=== PATIENT | female | born 1940 | race African-American/Black ===

== ENCOUNTER 2018-09-03 15:03 | Inpatient (IN) ==
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
[2018-09-03 16:27] LABS: Activated Partial Thrombo Time 25.7 sec (23.4-31.7); INR 1.1 Ratio; Prothrombin Time 11.2 sec (9.8-11.6)
[2018-09-03 16:41] LABS: Alkaline Phosphatase 114 U/L (45-117); Total Protein 7.2 g/dL (6.4-8.2)
[2018-09-03 16:42] LABS: Baso # (Auto) 0.1 th/mm3 (0.0-0.2); Baso % (Auto) 0.2 % (0.0-2.0); Eos % (Auto) 0.1 % (0.0-4.0); Hemoglobin 12.5 gm/dL (11.6-15.3); Lymph # (Auto) 1.3 th/mm3 (1.0-4.8); Lymph % (Auto) 3.6 % (9.0-44.0); Mean Corpuscular HGB Conc 33.9 % (32.0-36.0); Mean Corpuscular Volume 100.4 fL (80.0-100.0); Mean Platelet Volume 7.1 fL (7.0-11.0); Mono # (Auto) 2.2 th/mm3 (0.0-0.9); Mono % (Auto) 6.1 % (0.0-8.0); Neut # (Auto) 31.9 th/mm3 (1.8-7.7); Platelet Count 339 th/mm3 (150-450); Red Blood Count 3.68 mil/mm3 (4.00-5.30); Red Cell Distribution Width 13.1 % (11.6-17.2); White Blood Count 35.4 th/mm3 (4.0-11.0)
[2018-09-03 16:43] LABS: Alanine Aminotransferase 55 U/L (10-53); Anion Gap 11 meq/L (5-15); Aspartate Aminotransferase 60 U/L (15-37); Blood Urea Nitrogen 18 mg/dL (7-18); Calcium 8.7 mg/dL (8.5-10.1); Carbon Dioxide 23.3 meq/L (21.0-32.0); Chloride 106 meq/L (98-107); Glomerular Filtration Rate 62 mL/min (>89); Glucose,Random 222 mg/dL (74-106); Potassium 3.4 meq/L (3.5-5.1); Sodium 140 meq/L (136-145)
[2018-09-03 17:06] LABS: Lymphocytes 4 % (9-44); Monocytes 8 % (0-8)
[2018-09-03 17:07] LABS: Platelet Estimate Normal (Normal); Platelet Morphology Normal (Normal)
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
[2018-09-03] MEDS ORDERED: Morphine Sulfate Inj 2 MG/ML Vial IV.PUSH PRN (17:31)
[2018-09-03] MEDS ORDERED: Dextrose 50% in Water 50 ML Vial IV.PUSH PRN (17:35)
[2018-09-03] MEDS ORDERED: Methocarbamol 500 MG Tablet PO SCH (17:45)
--- NOTE | 2018-09-03 18:17 | XR ---
EXAM DATE: 09/03/2018 6:08 PM EST AGE/SEX: 78 years / Female INDICATIONS: Short of breath. CLINICAL DATA: This is the patient's initial encounter. Patient reports that signs and symptoms have been present for 1 day and indicates a pain score of Nonresponsive. MEDICAL/SURGICAL HISTORY: Non-responsive. Non-responsive. COMPARISON: No prior exams available for comparison. FINDINGS: A single AP view of the chest demonstrates the lungs to be symmetrically aerated without evidence of mass, infiltrate or effusion. The cardiomediastinal contours are unremarkable. Left posterior latera l sixth through ninth rib fractures. CONCLUSION: 1. Left posterior lateral sixth through ninth rib fractures without pneumothorax. Electronically signed by: Paulo Nunn MD 09/03/2018 6:16 PM EST
[2018-09-03] MEDS: Lidocaine 5% Patch T-DERMAL SCH (18:52)
[2018-09-03] MEDS: Pantoprazole Inj 40 MG Vial IV.PUSH SCH (21:01)
[2018-09-03] MEDS: Docusate Sodium 100 MG Capsule PO SCH (21:01)
[2018-09-03] MEDS: Sod Chloride 0.9% Inj 1,000 ML IV.CONT SCH (21:02)
[2018-09-03] MEDS: Insulin NovoLIN Regular Correctional Sugar Inj SQ SCH (21:02)
[2018-09-03] MEDS: Methocarbamol 500 MG Tablet PO SCH (21:02)
[2018-09-03 22:01] LABS: Hematocrit 36.6 % (35.0-46.0); Hemoglobin 12.6 gm/dL (11.6-15.3); Mean Corpuscular HGB Conc 34.6 % (32.0-36.0); Mean Corpuscular Hemoglobin 33.5 pg (27.0-34.0); Mean Corpuscular Volume 96.9 fL (80.0-100.0); Mean Platelet Volume 7.1 fL (7.0-11.0); Platelet Count 330 th/mm3 (150-450); Red Blood Count 3.77 mil/mm3 (4.00-5.30); Red Cell Distribution Width 13.2 % (11.6-17.2)
[2018-09-04] MEDS: Insulin NovoLIN Regular Correctional Sugar Inj SQ SCH ×4 (01:05→18:04)
[2018-09-04 03:48] LABS: Baso % (Auto) 0.1 % (0.0-2.0); Hemoglobin 11.2 gm/dL (11.6-15.3); Lymph % (Auto) 5.2 % (9.0-44.0); Mean Corpuscular HGB Conc 34.9 % (32.0-36.0); Mean Corpuscular Hemoglobin 33.7 pg (27.0-34.0); Mean Corpuscular Volume 96.4 fL (80.0-100.0); Mean Platelet Volume 7.2 fL (7.0-11.0); Mono % (Auto) 5.2 % (0.0-8.0); Neut # (Auto) 17.2 th/mm3 (1.8-7.7); Neut % (Auto) 89.5 % (16.0-70.0); Platelet Count 286 th/mm3 (150-450); Red Blood Count 3.32 mil/mm3 (4.00-5.30); Red Cell Distribution Width 13.2 % (11.6-17.2); White Blood Count 19.2 th/mm3 (4.0-11.0)
[2018-09-04 04:15] LABS: Alanine Aminotransferase 48 U/L (10-53); Albumin 3.8 g/dL (3.4-5.0); Alkaline Phosphatase 106 U/L (45-117); Anion Gap 9 meq/L (5-15); Aspartate Aminotransferase 38 U/L (15-37); Blood Urea Nitrogen 27 mg/dL (7-18); Calcium 8.6 mg/dL (8.5-10.1); Chloride 111 meq/L (98-107); Glomerular Filtration Rate 46 mL/min (>89); Glucose,Random 244 mg/dL (74-106); Potassium 4.3 meq/L (3.5-5.1); Sodium 143 meq/L (136-145); Total Protein 7.4 g/dL (6.4-8.2)
--- NOTE | 2018-09-04 04:54 | XR ---
EXAM DATE: 09/04/2018 4:44 AM EST AGE/SEX: 78 years / Female INDICATIONS: Shortness of breath. CLINICAL DATA: This is the patient's subsequent encounter. Patient reports that signs and symptoms h ave been present for 2 days and indicates a pain score of Nonresponsive. MEDICAL/SURGICAL HISTORY: Non-responsive. Non-responsive. COMPARISON: [facility] [place] 1V SINGLE AP, 09/03/2018. . FINDINGS: Mild basilar atelectasis. Left lower rib fractures are stable. No pneumothorax or significant effusio n. Heart size within normal limits. CONCLUSION: Multiple left-sided rib fractures. Mild basilar atelectasis. No significant pneumothorax. Electronically signed by: Jorge Luis Montano MD 09/04/2018 4:52 AM EST
[2018-09-04] MEDS: Methocarbamol 500 MG Tablet PO SCH ×3 (05:31→21:01)
[2018-09-04] MEDS: Sod Chloride 0.9% Inj 1,000 ML IV.CONT SCH ×2 (05:33→17:58)
[2018-09-04] MEDS: Lidocaine 5% Patch T-DERMAL SCH (09:45)
[2018-09-04] MEDS: amLODIPine 5 MG Tablet PO SCH (09:45)
[2018-09-04] MEDS: Levothyroxine 75 MCG Tablet PO SCH (09:45)
[2018-09-04] MEDS: Docusate Sodium 100 MG Capsule PO SCH ×2 (09:45→20:57)
--- NOTE | 2018-09-04 10:34 | ECG ---
Date Performed: 09/03/2018 Time Performed: 15:15:28 PTAGE: 78 years EKG: Sinus tachycardia RIGHT BUNDLE BRANCH BLOCK LEFT ANTERIOR FASCICULAR BLOCK Anterolateral ST depression, nonspecific VOLTAGE CRITERIA FOR LVH ABNORMAL ECG NO PREVIOUS TRACING DOCTOR: Valentín Douglas Interpretating Date/Time 09/04/2018 10:33:53
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
--- NOTE | 2018-09-04 17:27 | ECHRPT ---
Indication: Chest Pain CONCLUSIONS Normal left ventricular size. Wall thickness is normal. The left ventricular systolic function is normal with an estimated ejection fraction in the range of 55-60%. BP: 107 / 55 HR: 112 Rhythm: MEASUREMENTS (Male / Female) Normal Values Technical Quality:Technically difficult study 2D ECHO LV Diastolic Diameter PLAX 2.9 cm 4.2 - 5.9 / 3.9 - 5.3 cm LV Systolic Diameter PLAX 2.0 cm IVS Diastolic Thickness 1.0 cm 0.6 - 1.0 / 0.6 - 0.9 cm LVPW Diastolic Thickness 0.9 cm 0.6 - 1.0 / 0.6 - 0.9 cm LV Relative Wall Thickness 0.6 RV Internal Dim ED PLAX 2.3 cm LVOT Diameter 1.8 cm Aortic Root Diameter 2.3 cm LA Systolic Diameter LX 2.6 cm 3.0 - 4.0 / 2.7 - 3.8 cm DOPPLER AV Peak Velocity 140.0 cm/s AV Peak Gradient 7.8 mmHg Mitral E Point Velocity 69.6 cm/s Mitral A Point Velocity 113.0 cm/s Mitral E to A Ratio 0.6 LV E' Lateral Velocity 8.3 cm/s Mitral E to LV E' Lateral Ratio 8.4 LV E' Septal Velocity 7.9 cm/s Mitral E to LV E' Septal Ratio 8.8 TR Peak Velocity 281.0 cm/s TR Peak Gradient 31.6 mmHg Right Atrial Pressure 10.0 mmHg Pulmonary Artery Systolic Pressu 41.6 mmHg Right Ventricular Systolic Press 41.6 mmHg PV Peak Velocity 132.0 cm/s PV Peak Gradient 7.0 mmHg FINDINGS LEFT VENTRICLE Normal left ventricular size. Wall thickness is normal. The left ventricular systolic function is normal with an estimated ejection fraction in the range of 55-60%. RIGHT VENTRICLE Normal right ventricular size and systolic function. LEFT ATRIUM The left atrial size is normal. RIGHT ATRIUM The right atrial size is normal. ATRIAL SEPTUM Normal atrial septal thickness without atrial level shunting by limited color doppler interrogation. AORTA The aortic root and proximal ascending aorta are normal in size on limited imaging. MITRAL VALVE Structurally normal mitral valve. No mitral valve stenosis or regurgitation. AORTIC VALVE Trace aortic valve regurgitation. TRICUSPID VALVE There is trace tricuspid valve regurgitation. The estimated pulmonary arterial pressure is 42 mmHg. PULMONARY VALVE The pulmonary valve is not well visualized. VESSELS The inferior vena cava is normal in size. PERICARDIUM No pericardial effusion. Valentín Douglas MD, FACC (Electronically Signed) Final Date:04 September 2018 17:26
--- NOTE | 2018-09-04 17:35 | US ---
EXAM DATE: 09/04/2018 5:31 PM EST AGE/SEX: 78 years / Female INDICATIONS: History of stroke. CLINICAL DATA: This is the patient's initial encounter. Patient reports that signs and symptoms have been present for 1 day and indicates a pain score of 1/10. MEDICAL/SURGICAL HISTORY: Hypertension. Cerebral vascular accident. Left side rib fractures. Sp lenic laceration. Pelvic fracture. Thyroidectomy. Hysterectomy. COMPARISON: No prior exams available for comparison. VELOCITY PARAMETERS: ICA/CCA Ratio: Right 1.4 , Left 1.3 ICA: Right 108.5 cm/sec, Left 110.1 cm/sec CCA: Right 79.8 cm/sec, Left 87.8 cm/sec ECA: Right 82.4 cm/sec, Left 84.3 cm/sec Vertebral: Right 64.4 cm/sec antegrade, Left 72.3 cm/sec antegrade FINDINGS: Right Carotid: Mild arteriosclerotic plaque is visualized.The waveforms are within normal limits. Left Carotid: Mild arteriosclerotic plaque is visualized. The waveforms are within normal limits. Other: None. CONCLUSION: No evidence of flow-limiting carotid stenosis. Electronically signed by: Shane Reyna MD 09/04/2018 5:34 PM EST
[2018-09-04 18:00] LABS: Hemoglobin A1c 6.3 % (4.3-6.0)
[2018-09-04] MEDS: Pantoprazole Inj 40 MG Vial IV.PUSH SCH (20:57)
[2018-09-05] MEDS: Sod Chloride 0.9% Inj 1,000 ML IV.CONT SCH ×2 (00:27→12:03)
[2018-09-05] MEDS: Insulin NovoLIN Regular Correctional Sugar Inj SQ SCH ×4 (00:27→17:46)
[2018-09-05 04:13] LABS: Baso % (Auto) 0.2 % (0.0-2.0); Eos % (Auto) 0.1 % (0.0-4.0); Hematocrit 24.4 % (35.0-46.0); Hemoglobin 8.5 gm/dL (11.6-15.3); Lymph # (Auto) 0.8 th/mm3 (1.0-4.8); Mean Corpuscular HGB Conc 34.7 % (32.0-36.0); Mean Corpuscular Hemoglobin 33.7 pg (27.0-34.0); Mean Corpuscular Volume 97.3 fL (80.0-100.0); Mono # (Auto) 1.2 th/mm3 (0.0-0.9); Mono % (Auto) 7.3 % (0.0-8.0); Neut # (Auto) 14.4 th/mm3 (1.8-7.7); Neut % (Auto) 87.4 % (16.0-70.0); Platelet Count 202 th/mm3 (150-450); Red Blood Count 2.51 mil/mm3 (4.00-5.30); Red Cell Distribution Width 13.3 % (11.6-17.2); White Blood Count 16.4 th/mm3 (4.0-11.0)
[2018-09-05 04:44] LABS: Calcium 8.1 mg/dL (8.5-10.1); Carbon Dioxide 24.9 meq/L (21.0-32.0); Potassium 3.8 meq/L (3.5-5.1)
[2018-09-05] MEDS: Levothyroxine 75 MCG Tablet PO SCH (05:36)
[2018-09-05] MEDS: Methocarbamol 500 MG Tablet PO SCH ×3 (05:36→21:35)
--- NOTE | 2018-09-05 06:44 | P.PNOP ---
Subjective Interval history: Resting comfortably with pain controlled Physical Exam Vital signs: Vital Signs 09/04/18 07:00 09/04/18 08:00 09/04/18 08:49 Temperature 98.3 F Pulse Rate 110 H 116 H Respiratory Rate 29 H 21 Blood Pressure 164/87 H 164/73 H Pulse Oximetry 96 96 99 09/04/18 09:00 09/04/18 10:00 09/04/18 11:00 Temperature Pulse Rate 119 H 119 H 112 H Respiratory Rate 26 H 24 17 Blood Pressure 151/94 H 163/84 H 173/79 H Pulse Oximetry 96 95 95 09/04/18 12:00 09/04/18 13:00 09/04/18 14:00 Temperature Pulse Rate 110 H 111 H 104 H Respiratory Rate 27 H 26 H 21 Blood Pressure 163/79 H 170/80 H 162/74 H Pulse Oximetry 93 L 93 L 92 L 09/04/18 15:00 09/04/18 16:00 09/04/18 20:00 Temperature 99.1 F Pulse Rate 93 H 91 H 110 H Respiratory Rate 18 19 17 Blood Pressure 174/77 H 165/77 H 170/75 H Pulse Oximetry 92 L 93 L 90 L 09/04/18 21:02 09/05/18 00:00 09/05/18 00:35 Temperature 99.0 F Pulse Rate 108 H Respiratory Rate 16 16 16 Blood Pressure 181/82 H Pulse Oximetry 90 L 09/05/18 04:00 09/05/18 04:18 Temperature 98.9 F Pulse Rate 110 H Respiratory Rate 15 16 Blood Pressure 175/81 H Pulse Oximetry 91 L Intake & Output 09/04/18 09/04/18 09/05/18 06:59 18:59 06:59 Intake Total 1030 / 1030 1960 / 1960 360 / 360 Output Total 750 / 750 850 / 850 1250 / 1250 Balance 280 / 280 1110 / 1110 -890 / -890 Weight 59.6 kg 61.1 kg Intake: IV 1000 / 1000 1000 / 1000 NS Inj 1,000 ML @ 100 mls/hr IV 1000 / 1000 1000 / 1000 .CONT [facility] Rx#:[id number] Oral 30 / 30 960 / 960 360 / 360 Output: Urine 1250 / 1250 Urine Amount (Catheter) 750 / 750 850 / 850 Indwelling Urethral Catheter 750 / 750 850 / 850 Other: Date of Last Bowel Movement 08/03/18 09/03/18 # Bowel Movements 0 0 Weight On Admission 60.5 kg Narrative: Left upper extremity: Pain to palpation of clavicle. Intact distal pulses. Previous stroke with lack of muscle movement distally. - Urinary Catheter Management Indwelling Urethral Catheter Cath placed during this visit: yes Reason for continuing: Acute urinary retention Insertion date: 09/03/18 Insertion time: 20:30 Results - Labs CBC & Chem 7: 09/05/18 04:04 09/05/18 04:04 Laboratory Results - last 24 hr 09/04/18 09/04/18 09/04/18 03:11 03:11 11:25 WBC RBC Hgb Hct MCV MCH MCHC RDW Plt Count MPV Neut % (Auto) Lymph % (Auto) [place] % (Auto) Eos % (Auto) Baso % (Auto) Neut # (Auto) Lymph # (Auto) [place] # (Auto) Eos # (Auto) Baso # (Auto) WBC Differential . Diff Scan Auto diff confirmed Differential Comment Sodium Potassium Chloride Carbon Dioxide Anion Gap BUN Creatinine Estimated GFR POC Glucose Random Glucose Hemoglobin A1c 6.3 H Calcium Troponin I 0.49 H 09/04/18 09/04/18 09/05/18 13:38 18:02 00:18 WBC RBC Hgb Hct MCV MCH MCHC RDW Plt Count MPV Neut % (Auto) Lymph % (Auto) [place] % (Auto) Eos % (Auto) Baso % (Auto) Neut # (Auto) Lymph # (Auto) [place] # (Auto) Eos # (Auto) Baso # (Auto) WBC Differential Diff Scan Differential Comment Sodium Potassium Chloride Carbon Dioxide Anion Gap BUN Creatinine Estimated GFR POC Glucose 188 H 144 H 187 H Random Glucose Hemoglobin A1c Calcium Troponin I 09/05/18 09/05/18 09/05/18 04:04 04:04 05:35 WBC 16.4 H RBC 2.51 L Hgb 8.5 L D Hct 24.4 L MCV 97.3 MCH 33.7 MCHC 34.7 RDW 13.3 Plt Count 202 MPV 7.0 Neut % (Auto) 87.4 H Lymph % (Auto) 5.0 L [place] % (Auto) 7.3 Eos % (Auto) 0.1 Baso % (Auto) 0.2 Neut # (Auto) 14.4 H Lymph # (Auto) 0.8 L [place] # (Auto) 1.2 H Eos # (Auto) 0.0 Baso # (Auto) 0.0 WBC Differential . Diff Scan Differential Comment Auto diff final Sodium 145 Potassium 3.8 Chloride 111 H Carbon Dioxide 24.9 Anion Gap 9 BUN 22 H Creatinine 0.82 Estimated GFR 82 L POC Glucose 140 H Random Glucose 139 H D Hemoglobin A1c Calcium 8.1 L Troponin I - Imaging Impressions Carotid Doppler Study 09/04/18 00:00 CONCLUSION: No evidence of flow-limiting carotid stenosis. Assessment and Plan - Assessment and Plan 1) left nondisplaced midshaft clavicle fracture Nonoperative treatment. Sling and swath. We will re-x-ray in 2 weeks
--- NOTE | 2018-09-05 09:42 | CT ---
EXAM DATE: 09/05/2018 9:36 AM EST AGE/SEX: 78 years / Female INDICATIONS: Splenic laceration. CLINICAL DATA: This is the patient's subsequent encounter. Patient reports that signs and symptoms h ave been present for 2 days and indicates a pain score of 8/10. MEDICAL/SURGICAL HISTORY: Cerebrovascular disease. Hypertension. Hysterectomy. ORAL CONTRAST: No oral contrast ingested. RADIATION DOSE: 6.64 CTDI (mGy) COMPARISON: No prior exams available for comparison. TECHNIQUE: Multiple contiguous axial images were obtained through the abdomen and pelvis following b olus infusion of 75 ml Omnipaque 350 (iohexol) nonionic water-soluble contrast as a single exam dos e. No oral contrast ingested. Using automated exposure control and adjustment of the mA and/or kV ac cording to patient size, radiation dose was kept as low as reasonably achievable to obtain optimal di agnostic quality images. DICOM format image data is available electronically for review and comparis on. FINDINGS: Imaging through the lung bases demonstrates a small left basilar effusion and atelectasis in the left lower lobe. The heart is normal in size. There is atherosclerotic plaquing in the coronary arteries. The appearance of the liver is within normal limits. The examination demonstrates splenic laceration. There is high density fluid evident surrounding the spleen. No active hemorrhage is seen. The pancreas, adrenal glands and kidneys are intact. The abdominal aorta is normal in caliber. There is no retroperitoneal lymphadenopathy. No free air se en within the abdomen. The loops of small large bowel are unremarkable. The anterior abdominal wall i s intact. There is high density free fluid within the pelvis. There is a Arroyo catheter within the bladder. No iliac or inguinal adenopathy is present. Bone windowed imaging is provided. These demonstrate fractures of at least the left eighth through 12 th ribs. The upper ribs are not seen. The remainder the visualized bony structures are grossly intact . Note is made of a bone island in the left sacrum. CONCLUSION: 1. The examination demonstrates splenic laceration. There is high-density free fluid surrounding the spleen and some free fluid in the pelvis. No active bleeding is seen. 2. Small left-sided pneumothorax with atelectasis in the left lower lobe. 3. Multiple left-sided rib fractures. Electronically signed by: Steve Henderson MD 09/05/2018 9:41 AM EST
[2018-09-05] MEDS: Docusate Sodium 100 MG Capsule PO SCH ×2 (10:37→20:16)
[2018-09-05] MEDS: amLODIPine 5 MG Tablet PO SCH (10:37)
[2018-09-05] MEDS: Lidocaine 5% Patch T-DERMAL SCH (10:38)
[2018-09-05] MEDS: Atenolol 50 MG Tablet PO SCH (13:27)
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
[2018-09-05 15:19] LABS: Hematocrit 25.4 % (35.0-46.0); Hemoglobin 8.6 gm/dL (11.6-15.3)
[2018-09-05] MEDS: Pantoprazole Inj 40 MG Vial IV.PUSH SCH (20:46)
[2018-09-06] MEDS: Insulin NovoLIN Regular Correctional Sugar Inj SQ SCH ×4 (00:45→17:10)
[2018-09-06 04:40] LABS: Baso # (Auto) 0.1 th/mm3 (0.0-0.2); Baso % (Auto) 0.5 % (0.0-2.0); Eos % (Auto) 0.1 % (0.0-4.0); Hematocrit 22.3 % (35.0-46.0); Hemoglobin 7.8 gm/dL (11.6-15.3); Lymph # (Auto) 1.4 th/mm3 (1.0-4.8); Lymph % (Auto) 8.5 % (9.0-44.0); Mean Corpuscular HGB Conc 35.2 % (32.0-36.0); Mean Corpuscular Volume 96.7 fL (80.0-100.0); Mono # (Auto) 1.3 th/mm3 (0.0-0.9); Neut # (Auto) 13.1 th/mm3 (1.8-7.7); Neut % (Auto) 82.9 % (16.0-70.0); Platelet Count 185 th/mm3 (150-450); Red Cell Distribution Width 13.4 % (11.6-17.2); White Blood Count 15.8 th/mm3 (4.0-11.0)
[2018-09-06 05:02] LABS: Calcium 8.3 mg/dL (8.5-10.1); Carbon Dioxide 29.1 meq/L (21.0-32.0); Potassium 3.9 meq/L (3.5-5.1)
[2018-09-06] MEDS: Levothyroxine 75 MCG Tablet PO SCH (06:23)
[2018-09-06] MEDS: Methocarbamol 500 MG Tablet PO SCH ×2 (06:23→15:08)
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
[2018-09-06] MEDS: amLODIPine 5 MG Tablet PO SCH (08:25)
[2018-09-06] MEDS: Atenolol 50 MG Tablet PO SCH (08:26)
[2018-09-06] MEDS: Lidocaine 5% Patch T-DERMAL SCH (08:26)
[2018-09-06] MEDS: Docusate Sodium 100 MG Capsule PO SCH (11:34)
[2018-09-06 12:11] LABS: Hematocrit 25.9 % (35.0-46.0); Hemoglobin 8.5 gm/dL (11.6-15.3); Mean Corpuscular Hemoglobin 33.3 pg (27.0-34.0); Mean Corpuscular Volume 100.8 fL (80.0-100.0); Mean Platelet Volume 7.3 fL (7.0-11.0); Platelet Count 221 th/mm3 (150-450); Red Blood Count 2.56 mil/mm3 (4.00-5.30); Red Cell Distribution Width 13.2 % (11.6-17.2); White Blood Count 17.2 th/mm3 (4.0-11.0)
[2018-09-07] MEDS: Insulin NovoLIN Regular Correctional Sugar Inj SQ SCH ×4 (00:04→18:26)
[2018-09-07] MEDS: Pantoprazole Inj 40 MG Vial IV.PUSH SCH ×2 (00:06→21:06)
[2018-09-07] MEDS: Methocarbamol 500 MG Tablet PO SCH ×4 (00:06→21:03)
[2018-09-07] MEDS: Docusate Sodium 100 MG Capsule PO SCH (00:06)
[2018-09-07 04:59] LABS: Baso % (Auto) 0.3 % (0.0-2.0); Eos # (Auto) 0.1 th/mm3 (0.0-0.4); Eos % (Auto) 0.8 % (0.0-4.0); Hematocrit 23.4 % (35.0-46.0); Lymph # (Auto) 1.7 th/mm3 (1.0-4.8); Mean Corpuscular HGB Conc 34.2 % (32.0-36.0); Mean Corpuscular Hemoglobin 33.8 pg (27.0-34.0); Mean Corpuscular Volume 98.8 fL (80.0-100.0); Mean Platelet Volume 7.6 fL (7.0-11.0); Mono # (Auto) 1.2 th/mm3 (0.0-0.9); Mono % (Auto) 8.8 % (0.0-8.0); Neut # (Auto) 10.8 th/mm3 (1.8-7.7); Neut % (Auto) 78.1 % (16.0-70.0); Platelet Count 185 th/mm3 (150-450); Red Blood Count 2.37 mil/mm3 (4.00-5.30); White Blood Count 13.9 th/mm3 (4.0-11.0)
[2018-09-07 05:18] LABS: Calcium 8.1 mg/dL (8.5-10.1); Carbon Dioxide 27.6 meq/L (21.0-32.0); Potassium 3.5 meq/L (3.5-5.1)
[2018-09-07] MEDS: Levothyroxine 75 MCG Tablet PO SCH (07:20)
[2018-09-07] MEDS: Lidocaine 5% Patch T-DERMAL SCH (08:09)
[2018-09-07] MEDS: amLODIPine 5 MG Tablet PO SCH (08:09)
[2018-09-07] MEDS: Atenolol 50 MG Tablet PO SCH (08:10)
[2018-09-07] MEDS: Senna/Docusate Sodium 8.6/50 MG Tablet PO SCH ×2 (08:10→21:06)
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
[2018-09-07] MEDS: Ibuprofen 600 MG Tablet PO PRN (21:06)
[2018-09-08] MEDS: Methocarbamol 500 MG Tablet PO SCH ×2 (05:24→13:09)
[2018-09-08] MEDS: Insulin NovoLIN Regular Correctional Sugar Inj SQ SCH ×4 (05:24→17:43)
[2018-09-08 06:29] LABS: Baso % (Auto) 0.3 % (0.0-2.0); Eos # (Auto) 0.2 th/mm3 (0.0-0.4); Eos % (Auto) 2.3 % (0.0-4.0); Hemoglobin 7.9 gm/dL (11.6-15.3); Lymph # (Auto) 1.3 th/mm3 (1.0-4.8); Lymph % (Auto) 11.8 % (9.0-44.0); Mean Corpuscular Hemoglobin 34.9 pg (27.0-34.0); Mean Corpuscular Volume 97.1 fL (80.0-100.0); Mean Platelet Volume 7.2 fL (7.0-11.0); Mono # (Auto) 1.3 th/mm3 (0.0-0.9); Mono % (Auto) 11.7 % (0.0-8.0); Neut # (Auto) 7.9 th/mm3 (1.8-7.7); Neut % (Auto) 73.9 % (16.0-70.0); Platelet Count 196 th/mm3 (150-450); Red Blood Count 2.27 mil/mm3 (4.00-5.30); White Blood Count 10.7 th/mm3 (4.0-11.0)
[2018-09-08] MEDS: Levothyroxine 75 MCG Tablet PO SCH (06:29)
[2018-09-08 07:32] LABS: Eosinophils 2 % (0-4); Lymphocytes 14 % (9-44); Monocytes 10 % (0-8); Platelet Estimate Normal (Normal); Platelet Morphology Normal (Normal); Tallied Nucleated RBC 1 (0-0)
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
[2018-09-08] MEDS: Senna/Docusate Sodium 8.6/50 MG Tablet PO SCH ×2 (08:53→21:10)
[2018-09-08] MEDS: amLODIPine 5 MG Tablet PO SCH (08:53)
[2018-09-08] MEDS: Lidocaine 5% Patch T-DERMAL SCH (08:53)
[2018-09-08] MEDS: Atenolol 50 MG Tablet PO SCH (08:53)
[2018-09-08] MEDS: Ibuprofen 600 MG Tablet PO PRN ×2 (13:36→21:08)
[2018-09-08] MEDS: Pantoprazole Inj 40 MG Vial IV.PUSH SCH (21:10)
[2018-09-09] MEDS: Methocarbamol 500 MG Tablet PO SCH ×4 (01:10→21:52)
[2018-09-09] MEDS: Insulin NovoLIN Regular Correctional Sugar Inj SQ SCH ×4 (01:11→17:26)
[2018-09-09 04:32] LABS: Hemoglobin 7.4 gm/dL (11.6-15.3)
[2018-09-09] MEDS: Levothyroxine 75 MCG Tablet PO SCH (06:25)
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
[2018-09-09] MEDS: Atenolol 50 MG Tablet PO SCH (10:42)
[2018-09-09] MEDS: amLODIPine 5 MG Tablet PO SCH (10:43)
[2018-09-09] MEDS: Lidocaine 5% Patch T-DERMAL SCH (10:43)
[2018-09-09] MEDS: Senna/Docusate Sodium 8.6/50 MG Tablet PO SCH ×2 (10:43→21:52)
[2018-09-09 20:39] VITALS: RESP 18
[2018-09-09] MEDS: Pantoprazole Inj 40 MG Vial IV.PUSH SCH (21:51)
[2018-09-10] MEDS: Insulin NovoLIN Regular Correctional Sugar Inj SQ SCH ×3 (00:05→12:53)
[2018-09-10] MEDS: Levothyroxine 75 MCG Tablet PO SCH (05:17)
[2018-09-10] MEDS: Methocarbamol 500 MG Tablet PO SCH ×2 (05:17→13:00)
[2018-09-10] MEDS: Lidocaine 5% Patch T-DERMAL SCH (09:42)
[2018-09-10] MEDS: Enoxaparin Inj 40 MG/0.4 ML Syringe SQ SCH ×2 (09:42→09:52)
[2018-09-10] MEDS: amLODIPine 5 MG Tablet PO SCH (09:43)
[2018-09-10] MEDS: Senna/Docusate Sodium 8.6/50 MG Tablet PO SCH (09:43)
[2018-09-10] MEDS: Atenolol 50 MG Tablet PO SCH (09:43)
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
--- NOTE | 2018-09-10 16:29 | P.CONREH ---
History of Present Illness Primary Care Provider: UNKNOWN [facility], [facility] - History History Provided By: Patient, Significant Other - Medical History Medical History: Medical History (Last Reviewed 09/07/18 @ 07:46 by Tram Mix) CVA (cerebral vascular accident) H/O: hysterectomy HTN (hypertension) - Surgical History Surgical History: Surgical History (Last Reviewed 09/06/18 @ 09:31 by Kitty House) H/O thyroidectomy - Tobacco History Second Hand Smoke Exposure: No Smoking Status: Never smoker - Alcohol History How Often Do You Have a Drink Containing Alcohol: Never - Substance Use History Substance History: No History of Abuse - Travel History Recent Travel in the [place] Within the Last 8 Weeks: No Recent Travel Out of the Country Within the Last 8 Weeks: No - Immunization History Tetanus Immunization: Unsure Hx Influenza Vaccine This Season: No Medications and Allergies Active Medications: Active Medications Al Hydroxide/Mg Hydroxide (Milk Of Janay Liq) 30 ml PO Q12H [facility] Last Admin: 09/10/18 09:43 Dose: Not Given Albuterol (Duoneb Neb (Prn)) 1 ampul NEB Q2HR NEB PRN PRN Reason: SHORTNESS OF BREATH Amlodipine Besylate (Norvasc) 5 mg PO DAILY [facility] Last Admin: 09/10/18 09:43 Dose: 5 mg Atenolol (Tenormin) 50 mg PO DAILY [facility] Last Admin: 09/10/18 09:43 Dose: 50 mg Dextrose (D50w Vial) 50 ml IV.PUSH UNSCH PRN PRN Reason: PER HYPOGLYCEMIA PROTOCOL Enalaprilat (Vasotec Inj) 1.25 mg IV.PUSH Q8H PRN PRN Reason: Blood pressure 180/95 Last Admin: 09/10/18 12:57 Dose: 1.25 mg Enoxaparin Sodium (Lovenox Inj) 40 mg SQ DAILY [facility] Last Admin: 09/10/18 09:52 Dose: Not Given Glucagon (Glucagon Inj) 1 mg OTHER PRN PRN PRN Reason: for Hypoglycemia Protocol Ibuprofen (Motrin) 600 mg PO Q8H PRN PRN Reason: PAIN 1-10 AND/OR FEVER >101F Last Admin: 09/08/18 21:08 Dose: 600 mg Insulin Human Regular (Novolin R Correctional Sugar Inj) 0 units SQ Q6HR [facility]; Protocol Last Admin: 09/10/18 12:53 Dose: Not Given Lactulose (Lactulose Liq) 30 ml PO DAILY [facility] Last Admin: 09/10/18 09:42 Dose: Not Given Levothyroxine Sodium (Synthroid) 75 mcg PO DAILY@0600 [facility] Last Admin: 09/10/18 05:17 Dose: 75 mcg Lidocaine HCl (Lidoderm 5% Patch.12 Hr) 1 patch T-DERMAL DAILY [facility] Last Admin: 09/10/18 09:42 Dose: 1 patch Methocarbamol (Robaxin) 500 mg PO Q8HR [facility] Last Admin: 09/10/18 13:00 Dose: Not Given Multivitamins (Theragran) 1 tab PO DAILY [facility] Last Admin: 09/10/18 09:43 Dose: 1 tab Ondansetron HCl (Zofran Inj) 4 mg IV.PUSH Q6H PRN PRN Reason: NAUSEA OR VOMITING Pantoprazole Sodium (Protonix Inj) 40 mg IV.PUSH Q24H [facility] Last Admin: 09/09/18 21:51 Dose: 40 mg Senna/Docusate Sodium (Tova-Colace) 1 tab PO BID [facility] Last Admin: 09/10/18 09:43 Dose: Not Given Sodium Chloride (Ns Flush) 2 ml IV.FLUSH UNSCH PRN PRN Reason: FLUSH AFTER USING IV ACCESS Last Admin: 09/08/18 21:10 Dose: 2 ml Allergies Allergy/AdvReac Type Severity Reaction Status Date / Time metoprolol Allergy Severe LARGE DOSE Verified 09/06/18 18:30 CAUSED STROKE acetaminophen AdvReac Severe PALPITATION Verified 09/06/18 18:30 S olmesartan AdvReac Severe SKIN Verified 09/06/18 18:30 propoxyphene AdvReac Severe PALPITATION Verified 09/06/18 18:30 S Home Medications Medication Instructions Recorded Confirmed Type amlodipine 5 mg PO DAILY 09/03/18 09/03/18 History levothyroxine 75 mcg PO DAILY 09/03/18 09/03/18 History multivitamin 1 tab PO DAILY 09/03/18 09/03/18 History Exam - Physical Examination Vital Signs / I&O: Vital Signs 09/09/18 19:30 09/10/18 00:05 09/10/18 03:45 Temperature 99.5 F 98.5 F 98.4 F Pulse Rate 86 82 84 Respiratory Rate 18 18 18 Blood Pressure 172/78 H 140/60 150/70 H Pulse Oximetry 96 96 95 09/10/18 08:05 09/10/18 12:00 Temperature 98.6 F 98.7 F Pulse Rate 85 88 Respiratory Rate 18 Blood Pressure 162/74 H 183/78 H Pulse Oximetry 96 100 Intake & Output 09/09/18 09/10/18 09/10/18 18:59 06:59 18:59 Intake Total 1650 / 1650 100 / 100 Output Total 1504 / 1504 350 / 350 Balance 146 / 146 -250 / -250 Weight 61.3 kg Intake: Oral 1650 / 1650 100 / 100 Output: Urine 1504 / 1504 350 / 350 Other: # Voids 2 Date of Last Bowel Movement 09/09/18 09/09/18 # Bowel Movements 2 0 Intake & Output 09/08/18 09/09/18 09/10/18 09/11/18 06:59 06:59 06:59 06:59 Intake Total 760 / 760 480 / 480 1750 / 1750 Output Total 800 / 800 1854 / 1854 Balance -40 / -40 480 / 480 -104 / -104 Weight 62.1 kg 62.1 kg 61.3 kg Date of Last Bowel Movement: 09/09/18 Results - Labs CBC & Chem 7: 09/09/18 04:14 09/07/18 04:23 Labs: Laboratory Results - last 24 hr 09/10/18 05:21 POC Glucose 134 H Assessment and Plan - Plan Assessment: 1. Patient will benefit from ongoing inpatient rehabilitation. Continue to adjust pain management to facilitate mobilization. 2. Continue PT to mobilize out of bed. Discussed with nursing who is also encouraging patient to be out of bed. 3. OT for ADL's 4. Will follow while hospitalized and at discharge as appropriate Thank you for this consult
[2018-09-10 17:29] VITALS: BP 151/72; PULSE 99; TEMP 97.1; O2SAT 97
== END 2018-09-10 18:34 ==
LOC: NEPE 15:03 → NEDA 17:32 → N03 18:10 → N06 09-04 19:31
PROVIDERS: ADMIT Surgery; ATTEND Surgery

== ENCOUNTER 2018-09-13 16:11 | Inpatient (IN) ==
[2018-09-13] MEDS ORDERED: fentaNYL Citrate Inj 250 MCG/5 ML Ampul ONE (16:24)
--- NOTE | 2018-09-13 16:37 | P.PNPSYCH ---
- Progress Notes/Response to Treatment Targeted Symptoms/Reason for Referral: All symptoms related to patient adjusting to decreased functional ability immediately following medical stay, to encourage ongoing program participation, and to provide empathic listening as patient processes thoughts and feelings about medical complexities. Symptoms include, but are not limited to, fluctuating levels of anxiety, depressed mood, and frustration related to loss of independence and autonomy. Type of Therapeutic Intervention: Supportive, interpersonal, insight oriented, with collateral focus on family/ caregiver system as needed. Treatment Plan: The plan is to continue to provide supportive psychotherapy throughout the patient's stay in the facility. This advertising copy writer will continue to promote participation in therapies across all domains which increase the patient's functional ability. I will attend team conferences in order to have ongoing consultation with other members of the patient's treatment team across all domains. I will observe the patient participating with other therapists across different domains in order to gauge the patient's participation and provide appropriate feedback to the patient related to their responsiveness to the treating therapists and the emotional content related to participation in the rehabilitation program both in the gym/room during treatment and when the patient is getting restorative rest outside treatment times. I will also continue to normalize the patients feelings related to their medical complexities and ongoing challenges to which they are adjusting, while providing verbal praise and ongoing encouragement related to participation in the program. The goal is for the patient to continue to participate in therapies and process thoughts and feelings regarding the medical rehabilitation process. This goal is ongoing throughout their stint, as the patient must be effortful in the therapy process so that all and occupational therapy goals can be met despite ongoing medical complexities. Emotional transparency and insight regarding the way their history and present situation shape their emotional functioning and response to the stressors indigenous to the medical rehabilitation process will be addressed as appropriate. The long- term goal is to diminish, or at least identify and appropriately process, any uncomfortable feelings related to the patient's ongoing challenges that are a part of recovering from a medical crisis and to assist the patient in adapting and adjusting to functioning at the improving levels the patient meets throughout the course of their stay at the facility. Progress Toward Goals / Interaction/Reaction to Therapy: Patient is engaged and responsive, with good eye contact and ability to attend to interaction. Patients mood is congruent with their present situation and they are continuing to attempt to manage emotional content related to the level of independence they had before the onset of their health complexities versus compromised physical well-being.
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
[2018-09-13] MEDS ORDERED: Morphine Inj 4 MG/ML Vial IV.PUSH PRN (16:42)
--- NOTE | 2018-09-13 17:27 | P.RAD ---
Post Procedure Progress Note - Procedure Information Procedure Date: 09/13/18 Supervising Radiologist: Se Kim MD Estimated blood loss (mL): 5 Anesthesia: Conscious Sedation - Plan of Activity Patient to Unit: ROPU Patient Condition: Good See PACS Report for procedural detail/treatment.
[2018-09-13] MEDS ORDERED: Gelatin 12 MM/7 MM Topical Foam I-ARTERIAL ONE (18:18)
[2018-09-13] MEDS: Pantoprazole Inj 40 MG Vial IV.PUSH SCH (19:41)
[2018-09-14] MEDS ORDERED: Chlorhexidine Gluconate 2% 1 Pack (2 Cloths) TOPICAL PRN (04:00)
[2018-09-14 04:36] LABS: Baso # (Auto) 0.1 th/mm3 (0.0-0.2); Baso % (Auto) 0.3 % (0.0-2.0); Hematocrit 26.5 % (35.0-46.0); Hemoglobin 9.1 gm/dL (11.6-15.3); Lymph # (Auto) 0.8 th/mm3 (1.0-4.8); Lymph % (Auto) 3.4 % (9.0-44.0); Mean Corpuscular HGB Conc 34.2 % (32.0-36.0); Mean Corpuscular Hemoglobin 33.2 pg (27.0-34.0); Mean Corpuscular Volume 97.1 fL (80.0-100.0); Mono # (Auto) 1.4 th/mm3 (0.0-0.9); Mono % (Auto) 5.5 % (0.0-8.0); Neut # (Auto) 22.1 th/mm3 (1.8-7.7); Neut % (Auto) 90.8 % (16.0-70.0); Platelet Count 581 th/mm3 (150-450); Red Blood Count 2.73 mil/mm3 (4.00-5.30); Red Cell Distribution Width 13.9 % (11.6-17.2); White Blood Count 24.4 th/mm3 (4.0-11.0)
[2018-09-14 04:56] LABS: Anion Gap 10 meq/L (5-15); Blood Urea Nitrogen 17 mg/dL (7-18); Calcium 8.9 mg/dL (8.5-10.1); Carbon Dioxide 25.6 meq/L (21.0-32.0); Chloride 102 meq/L (98-107); Glomerular Filtration Rate Greater Than 89 mL/min (>89); Glucose,Random 172 mg/dL (74-106); Potassium 3.5 meq/L (3.5-5.1); Sodium 138 meq/L (136-145)
[2018-09-14 05:22] LABS: Platelet Morphology Normal (Normal); RBC Morphology Normal (Normal)
[2018-09-14] MEDS ORDERED: Bisacodyl 10 MG Supp RECTAL PRN (09:56)
[2018-09-14] MEDS ORDERED: D5W IV.SIG SCH (10:00)
[2018-09-14] MEDS ORDERED: LEVOFLOXACIN IV.SIG SCH (10:00)
[2018-09-14] MEDS: Lidocaine 5% Patch T-DERMAL SCH (10:40)
[2018-09-14] MEDS: Famotidine 20 MG Tablet PO SCH ×2 (10:40→21:33)
[2018-09-14] MEDS: Ferrous Sulfate 325 MG Tablet PO SCH (10:41)
[2018-09-14] MEDS: Atenolol 50 MG Tablet PO SCH (10:41)
[2018-09-14] MEDS: amLODIPine 5 MG Tablet PO SCH (10:41)
[2018-09-14] MEDS: guaiFENesin 600 MG ER Tablet PO SCH ×2 (10:41→21:34)
[2018-09-14] MEDS: Methocarbamol 500 MG Tablet PO SCH ×2 (10:42→21:33)
[2018-09-14] MEDS: Levothyroxine 75 MCG Tablet PO SCH (10:42)
--- NOTE | 2018-09-14 11:14 | P.PNCC ---
Subjective 24 Hour Review/Hospital Course: 09/14 She was readmitted with failure of nonoperative management of her splenic injury - She underwent angioembolization of the main splenic artery Her hemoglobin is 9.1 today and is stable, her abdomen is soft and is benign She is overall not very compliant with her care refuses pain medication which she should be on special for pulmonary toilet Long discussion with the patient emphasized her need to come to participate in care especially physical therapy [place] patient has a E. coli UTI and will switch antibiotics to Rocephin which has higher sensitivity We will keep patient another day in the ICU monitor her white cell count which is 24 Objective Vital Signs / I&O: Vital Signs 09/13/18 18:21 09/13/18 19:00 09/13/18 19:30 Temperature 99 F Pulse Rate 88 87 87 Respiratory Rate 12 16 29 H Blood Pressure 177/78 H 173/79 H 171/79 H Pulse Oximetry 100 100 100 09/13/18 20:00 09/13/18 20:30 09/13/18 21:00 Temperature 98.3 F Pulse Rate 84 87 85 Respiratory Rate 27 H 31 H 26 H Blood Pressure 191/82 H 181/83 H Pulse Oximetry 100 100 100 09/13/18 21:28 09/13/18 21:30 09/13/18 22:00 Temperature Pulse Rate 87 87 75 Respiratory Rate 30 H 29 H 23 Blood Pressure 192/80 H 182/81 H 189/80 H Pulse Oximetry 100 100 100 09/13/18 22:30 09/13/18 23:00 09/13/18 23:30 Temperature Pulse Rate 79 77 78 Respiratory Rate 28 H 28 H 33 H Blood Pressure 184/81 H 193/85 H 202/82 H Pulse Oximetry 100 100 100 09/14/18 00:00 09/14/18 00:30 09/14/18 01:00 Temperature 98.5 F Pulse Rate 78 78 78 Respiratory Rate 33 H 30 H 26 H Blood Pressure 195/90 H 214/90 H 218/91 H Pulse Oximetry 100 100 100 09/14/18 01:30 09/14/18 02:00 09/14/18 02:30 Temperature Pulse Rate 80 76 76 Respiratory Rate 28 H 23 25 H Blood Pressure 204/94 H 196/92 H Pulse Oximetry 100 92 L 100 09/14/18 02:45 09/14/18 03:00 09/14/18 03:21 Temperature Pulse Rate 77 80 78 Respiratory Rate 24 23 26 H Blood Pressure 189/84 H 189/86 H 194/86 H Pulse Oximetry 100 100 100 09/14/18 03:30 09/14/18 04:00 09/14/18 04:30 Temperature 98.5 F Pulse Rate 78 77 79 Respiratory Rate 30 H 24 25 H Blood Pressure 187/86 H 201/89 H 196/90 H Pulse Oximetry 100 100 100 09/14/18 04:52 09/14/18 05:00 09/14/18 05:30 Temperature Pulse Rate 76 82 79 Respiratory Rate 22 29 H 32 H Blood Pressure 223/91 H 180/84 H 198/90 H Pulse Oximetry 100 100 09/14/18 06:00 09/14/18 06:30 09/14/18 07:00 Temperature Pulse Rate 77 81 78 Respiratory Rate 23 31 H 24 Blood Pressure 221/93 H 188/88 H 209/94 H Pulse Oximetry 09/14/18 07:16 09/14/18 08:00 09/14/18 08:44 Temperature 98.9 F Pulse Rate 82 80 84 Respiratory Rate 30 H 24 37 H Blood Pressure 190/88 H 200/91 H Pulse Oximetry 09/14/18 08:47 09/14/18 09:00 09/14/18 09:13 Temperature Pulse Rate 82 81 Respiratory Rate 30 H 24 Blood Pressure 185/88 H 180/85 H 182/85 H Pulse Oximetry 100 100 Intake & Output 09/13/18 09/14/18 09/14/18 18:59 06:59 18:59 Intake Total 40 / 40 1000 / 1000 Output Total 600 / 600 Balance -560 / -560 1000 / 1000 Weight 60.6 kg Intake: IV 1000 / 1000 LR 1000 mL Inj 1,000 ML @ 75 1000 / 1000 mls/hr IV.CONT .[id number] [facility] Rx# :[id number] Oral 40 / 40 Output: Urine 600 / 600 Other: Weight On Admission 60.6 kg Result Diagrams: 09/14/18 04:12 09/14/18 04:12 Disinhibition Score: 14.00 Aggression Score: 14.00 Lability Score: 14.00 Agitated Behavior Total Score: 14 - Exam SHELLFISH SORTER: g Coma score is 15 Hemodynamic/Cardiac: Patient is hemodynamically normal Pulmonary/Respiratory: Breath sounds are clear bilateral Abdomen/GI Nutrition: Abdomen is soft benign Hematologic: hemoGlobin is 9.1 and stable Assessment and Plan Plan: Continue monitoring in the ICU Start DVT prophylaxis tomorrow Antibiotics for UTI Out of bed physical therapy Start clear liquid
[2018-09-14] MEDS: Chlorhexidine Gluconate 2% 1 Pack (2 Cloths) TOPICAL SCH (18:34)
[2018-09-14] MEDS: Senna/Docusate Sodium 8.6/50 MG Tablet PO SCH ×2 (18:34→21:34)
[2018-09-14] MEDS: Pantoprazole Inj 40 MG Vial IV.PUSH SCH (18:35)
[2018-09-15] MEDS: Chlorhexidine Gluconate 2% 1 Pack (2 Cloths) TOPICAL SCH (04:54)
[2018-09-15 05:23] LABS: Baso % (Auto) 0.2 % (0.0-2.0); Eos # (Auto) 0.1 th/mm3 (0.0-0.4); Eos % (Auto) 0.2 % (0.0-4.0); Hematocrit 25.9 % (35.0-46.0); Lymph # (Auto) 1.3 th/mm3 (1.0-4.8); Lymph % (Auto) 5.3 % (9.0-44.0); Mean Corpuscular HGB Conc 34.9 % (32.0-36.0); Mean Corpuscular Hemoglobin 33.6 pg (27.0-34.0); Mean Corpuscular Volume 96.2 fL (80.0-100.0); Mean Platelet Volume 6.9 fL (7.0-11.0); Mono # (Auto) 1.7 th/mm3 (0.0-0.9); Mono % (Auto) 7.2 % (0.0-8.0); Neut # (Auto) 20.6 th/mm3 (1.8-7.7); Neut % (Auto) 87.1 % (16.0-70.0); Platelet Count 578 th/mm3 (150-450); Red Blood Count 2.69 mil/mm3 (4.00-5.30); White Blood Count 23.7 th/mm3 (4.0-11.0)
[2018-09-15 05:44] LABS: Albumin 2.7 g/dL (3.4-5.0); Anion Gap 8 meq/L (5-15); Aspartate Aminotransferase 20 U/L (15-37); Blood Urea Nitrogen 16 mg/dL (7-18); Calcium 8.2 mg/dL (8.5-10.1); Carbon Dioxide 27.1 meq/L (21.0-32.0); Chloride 103 meq/L (98-107); Glucose,Random 158 mg/dL (74-106); Potassium 3.4 meq/L (3.5-5.1); Sodium 138 meq/L (136-145)
[2018-09-15 05:50] LABS: Alanine Aminotransferase 15 U/L (10-53); Alkaline Phosphatase 131 U/L (45-117); Glomerular Filtration Rate Greater Than 89 mL/min (>89)
[2018-09-15] MEDS: Methocarbamol 500 MG Tablet PO SCH ×3 (06:38→21:11)
[2018-09-15] MEDS: guaiFENesin 600 MG ER Tablet PO SCH ×2 (09:10→20:52)
[2018-09-15] MEDS: Ferrous Sulfate 325 MG Tablet PO SCH (09:11)
[2018-09-15] MEDS: Famotidine 20 MG Tablet PO SCH ×2 (09:11→20:52)
[2018-09-15] MEDS: Atenolol 50 MG Tablet PO SCH (09:11)
[2018-09-15] MEDS: amLODIPine 5 MG Tablet PO SCH (09:11)
[2018-09-15] MEDS: Senna/Docusate Sodium 8.6/50 MG Tablet PO SCH ×2 (09:11→20:52)
[2018-09-15] MEDS: Levothyroxine 75 MCG Tablet PO SCH (09:11)
[2018-09-15] MEDS: Lidocaine 5% Patch T-DERMAL SCH (09:11)
--- NOTE | 2018-09-15 09:47 | P.DIET ---
Nutritional Evaluation Type of nutrition evaluation: initial Nutrition consult regarding: Diet Evaluation Nutrition screening: Poor PO Intake Screening comments: 09/13 MDC for poor PO intake Objective - Diagnosis hemmorhagic spleen - Objective Body Mass Index: 21.9 % IBW: 104 (IBW = 130lb) Body Weight Used for Calculations: Actual Energy Needs - Lower Range (kCal/kg): 25 Energy Needs - Upper Range (kCal/kg): 30 Lower Limit kCal/kg (kCals): 1,540 Upper Limit kCal/kg (kCals): 1,848 Lower Limit Protein Factor (Grams per Kg): 1.1 Upper Limit Protein Factor (Grams per Kg): 1.3 Lower Protein Needs (Protein): 68 Upper Protein Needs (Protein): 80 Dietitian Reviewed in Medical Record: Current diet, Curent medications, Intake & Output, Labs, Medical history Diet Order: regular Oral Diet Intake Amount: Good 75-90% Objective Comments: PMH: CVA, HTN Labs: random glucose 172 158 Assessment Assessment: Pt currently at nutritional risk r/t poor PO intake. Pt was previously on clear liquid diet, consuming around 100% for most meals yesterday 09/14. Pt now on regular diet. RD to recommend Ensure Enlive BID as PO supplement for additional nutrition. Continue to monitor PO and supplement intake. Labs reviewed, dietitian following. Recommendations: 1. RD to recommend Ensure Enlive BID as PO supplement for additional nutrition 2. Continue to monitor PO and supplement intake 3. Dietitian following Dietitian to Monitor: Lab values, Supplement acceptance, Intake & Output, Diet tolerance, PO Intake, Medical course
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
[2018-09-15] MEDS: Enoxaparin Inj 30 MG/0.3 ML Syringe SQ SCH ×2 (13:00→20:52)
[2018-09-15] MEDS: Pantoprazole Inj 40 MG Vial IV.PUSH SCH (17:07)
[2018-09-16] MEDS: Chlorhexidine Gluconate 2% 1 Pack (2 Cloths) TOPICAL SCH (03:00)
[2018-09-16 04:25] LABS: Baso # (Auto) 0.1 th/mm3 (0.0-0.2); Baso % (Auto) 0.5 % (0.0-2.0); Eos # (Auto) 0.2 th/mm3 (0.0-0.4); Eos % (Auto) 1.2 % (0.0-4.0); Hemoglobin 8.3 gm/dL (11.6-15.3); Lymph # (Auto) 1.8 th/mm3 (1.0-4.8); Mean Corpuscular HGB Conc 33.3 % (32.0-36.0); Mean Corpuscular Hemoglobin 32.6 pg (27.0-34.0); Mean Corpuscular Volume 97.9 fL (80.0-100.0); Mean Platelet Volume 6.5 fL (7.0-11.0); Mono # (Auto) 1.6 th/mm3 (0.0-0.9); Mono % (Auto) 8.9 % (0.0-8.0); Neut # (Auto) 14.6 th/mm3 (1.8-7.7); Neut % (Auto) 79.4 % (16.0-70.0); Platelet Count 577 th/mm3 (150-450); Red Blood Count 2.55 mil/mm3 (4.00-5.30); Red Cell Distribution Width 13.8 % (11.6-17.2); White Blood Count 18.4 th/mm3 (4.0-11.0)
[2018-09-16 04:52] LABS: Anion Gap 7 meq/L (5-15); Blood Urea Nitrogen 13 mg/dL (7-18); Carbon Dioxide 26.7 meq/L (21.0-32.0); Chloride 105 meq/L (98-107); Glomerular Filtration Rate Greater Than 89 mL/min (>89); Glucose,Random 142 mg/dL (74-106); Potassium 3.6 meq/L (3.5-5.1); Sodium 139 meq/L (136-145)
[2018-09-16] MEDS: Methocarbamol 500 MG Tablet PO SCH ×3 (05:12→21:35)
[2018-09-16] MEDS: Levothyroxine 75 MCG Tablet PO SCH (08:00)
[2018-09-16] MEDS: Atenolol 50 MG Tablet PO SCH (09:28)
[2018-09-16] MEDS: Senna/Docusate Sodium 8.6/50 MG Tablet PO SCH ×2 (09:29→21:14)
[2018-09-16] MEDS: Ferrous Sulfate 325 MG Tablet PO SCH (09:29)
[2018-09-16] MEDS: amLODIPine 5 MG Tablet PO SCH (09:29)
[2018-09-16] MEDS: guaiFENesin 600 MG ER Tablet PO SCH ×2 (09:29→21:14)
[2018-09-16] MEDS: Famotidine 20 MG Tablet PO SCH ×2 (09:29→21:14)
[2018-09-16] MEDS: Lidocaine 5% Patch T-DERMAL SCH (09:31)
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
[2018-09-16] MEDS: Enoxaparin Inj 30 MG/0.3 ML Syringe SQ SCH ×2 (09:40→21:14)
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
[2018-09-16] MEDS: [UNRECOGNIZED DRUG - REMARK] SQ SCH (13:04)
[2018-09-16] MEDS: Pantoprazole Inj 40 MG Vial IV.PUSH SCH (17:31)
[2018-09-17] MEDS: Chlorhexidine Gluconate 2% 1 Pack (2 Cloths) TOPICAL SCH (03:19)
[2018-09-17 04:58] LABS: Hematocrit 23.5 % (35.0-46.0); Hemoglobin 8.1 gm/dL (11.6-15.3)
[2018-09-17] MEDS: Methocarbamol 500 MG Tablet PO SCH (05:10)
[2018-09-17] MEDS ORDERED: Methocarbamol 500 MG Tablet PO PRN (06:49)
[2018-09-17] MEDS: Famotidine 20 MG Tablet PO SCH ×2 (08:57→21:14)
[2018-09-17] MEDS: [UNRECOGNIZED DRUG - REMARK] SQ SCH (08:57)
[2018-09-17] MEDS: Atenolol 50 MG Tablet PO SCH (08:58)
[2018-09-17] MEDS: Senna/Docusate Sodium 8.6/50 MG Tablet PO SCH ×2 (08:58→21:06)
[2018-09-17] MEDS: Ferrous Sulfate 325 MG Tablet PO SCH (08:58)
[2018-09-17] MEDS: guaiFENesin 600 MG ER Tablet PO SCH ×2 (08:58→21:06)
[2018-09-17] MEDS: Levothyroxine 75 MCG Tablet PO SCH (08:58)
[2018-09-17] MEDS: amLODIPine 5 MG Tablet PO SCH (08:58)
[2018-09-17] MEDS: Lidocaine 5% Patch T-DERMAL SCH (08:59)
[2018-09-17] MEDS: Enoxaparin Inj 30 MG/0.3 ML Syringe SQ SCH (08:59)
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
[2018-09-17] MEDS ORDERED: amLODIPine 5 MG Tablet PO SCH (10:21)
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
[2018-09-17] MEDS ORDERED: amLODIPine 5 MG Tablet PO ONE (11:00)
[2018-09-17] MEDS: Pantoprazole Inj 40 MG Vial IV.PUSH SCH (18:49)
[2018-09-18 06:09] LABS: Hematocrit 24.2 % (35.0-46.0); Hemoglobin 8.3 gm/dL (11.6-15.3)
[2018-09-18] MEDS: Chlorhexidine Gluconate 2% 1 Pack (2 Cloths) TOPICAL SCH (06:28)
[2018-09-18] MEDS: guaiFENesin 600 MG ER Tablet PO SCH ×2 (09:29→22:01)
[2018-09-18] MEDS: Senna/Docusate Sodium 8.6/50 MG Tablet PO SCH ×2 (09:29→22:00)
[2018-09-18] MEDS: Famotidine 20 MG Tablet PO SCH ×2 (09:33→22:00)
[2018-09-18] MEDS: Lidocaine 5% Patch T-DERMAL SCH (09:33)
[2018-09-18] MEDS: Levothyroxine 75 MCG Tablet PO SCH (09:34)
[2018-09-18] MEDS: Enoxaparin Inj 30 MG/0.3 ML Syringe SQ SCH (09:34)
[2018-09-18] MEDS: Ferrous Sulfate 325 MG Tablet PO SCH (09:35)
[2018-09-18] MEDS: Atenolol 50 MG Tablet PO SCH (09:35)
[2018-09-18] MEDS: amLODIPine 10 MG Tablet PO SCH (09:36)
[2018-09-18] MEDS: [UNRECOGNIZED DRUG - REMARK] SQ SCH (09:36)
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
[2018-09-18] MEDS: Pantoprazole Inj 40 MG Vial IV.PUSH SCH (17:15)
[2018-09-19] MEDS: Ferrous Sulfate 325 MG Tablet PO SCH (08:59)
[2018-09-19] MEDS: guaiFENesin 600 MG ER Tablet PO SCH (09:00)
[2018-09-19] MEDS: Lidocaine 5% Patch T-DERMAL SCH (09:00)
[2018-09-19] MEDS: Enoxaparin Inj 30 MG/0.3 ML Syringe SQ SCH (09:00)
[2018-09-19] MEDS: Levothyroxine 75 MCG Tablet PO SCH (09:02)
[2018-09-19] MEDS: amLODIPine 10 MG Tablet PO SCH (09:02)
[2018-09-19] MEDS: Senna/Docusate Sodium 8.6/50 MG Tablet PO SCH (09:02)
[2018-09-19] MEDS: Famotidine 20 MG Tablet PO SCH (09:02)
[2018-09-19] MEDS: Atenolol 50 MG Tablet PO SCH (09:02)
== END 2018-09-19 16:36 ==
LOC: HSDI 16:11 → HPAC 16:22 → N03 18:23 → N07 09-15 13:52
PROVIDERS: ADMIT Surgery Trauma Surgery; ATTEND Surgery Trauma Surgery